=== PATIENT | female | born 1970 | race Caucasian/White ===

== ENCOUNTER 2019-01-21 06:20 | Day surgery (SDC) | payer BC ==
[2019-01-20 16:20] VITALS: BMI 26.5
[2019-01-21] VITALS (9 sets, daily range): BP systolic 97–140; BP diastolic 54–88; PULSE 57–80; RESP 17–18; Ht 162.6 cm; Wt 71.4 kg
[~2019-01-21] VITALS: Ht 162.6 cm; Wt 71.4 kg
[~2019-01-21 06:20] MED LIST: CEFAZOLIN 2 GM/50 ML (PMX) 50 ML IVPB SCH; SOD CHLORIDE 0.9% 1,000 ML IV ONE
[2019-01-21] MEDS ORDERED: BUPIVACAINE 0.5% (SDV) 30 ML INJ ONE (07:58)
[2019-01-21] MEDS ORDERED: BUPIVACAINE 0.5%/EPI (SDV) 30 ML INJ ONE (07:58)
[2019-01-21] MEDS ORDERED: BACITRACIN 0.9 GM OINT ONE (07:58)
[2019-01-21] MEDS ORDERED: BACITRACIN/POLYMYXIN 28.35 GM OINT TOP ONE (07:59)
--- NOTE | 2019-01-21 08:04 | PREAC ---
Date/Time of Note Date/Time of Note DATE: 01/21/19 TIME: 08:01 Anesthesia Eval and Record Evaluation Time Pre-Procedure Interview DATE: 01/21/19 TIME: 08:01 Age 48 Sex female NPO: 8 hrs Preoperative diagnosis Lt scalp mass Planned procedure Excision of lt scalp mass Past Medical History Past Medical History: None Surgery & Anesthesia Issues No known issue Meds Anticoagulation: No Beta Chato within 24 hr: No Reason Beta Chato not given: Pt. not on B-Chato No Active Prescriptions or Reported Meds Current Medications Cefazolin Sodium/ Dextrose 50 ml @ 100 mls/hr PRE-OP IVPB ; Start 01/21/19 at 06:00; Stop 01/21/19 at 15:00 Sodium Chloride 1,000 ml @ 75 mls/hr [id number] ONCE IV Last administered on 01/21/19at 06:42; Admin Dose 75 MLS/HR; Start 01/21/19 at 06:00; Stop 01/21/19 at 19:19 Meds reviewed: Yes Allergies Coded Allergies: No Known Allergy (Unverified , 01/21/19) Allergies Reviewed: Yes Labs/Studies Labs Reviewed: Reviewed by anesthesiologist test: Negative Studies: ECG Pre-procedure Exam Last vitals Vital Signs Date Temp Pulse Resp B/P (MAP) Pulse Ox O2 O2 Flow FiO2 Time Delivery Rate 01/21/19 98.2 78 18 140/88 97 Room Air 06:51 (105) Airway: Adequate mouth opening, Adequate thyromental dist Mallampati: Mallampati II Teeth: Normal Lung: Normal Heart: Normal ASA Physical Status ASA physical status: 3 Emergency: None Planned Anesthetic General/MAC: LMA Planned Pain Management Parenteral pain med Pre-operative Attestations Prior to commencing anesthesia and surgery, the patient was re-evaluated, there was verification of: *The patient's identity *The results of appropriate recent lab work and preoperative vital signs *The above evaluation not changing prior to induction *Anesthetic plan, risk benefits, alternative and complications discussed with patient/family; questions answered; patient/family understands, accepts and wish es to proceed. DAISHA TREADWELL MD Jan 21, 2019 08:04
[2019-01-21] MEDS ORDERED: LIDOCAINE 1% (MPF) 30 ML INJ ONE (08:28)
[2019-01-21] MEDS ORDERED: FENTAnyl 50 MCG/ML VIAL ONE (08:29)
[2019-01-21] MEDS ORDERED: MIDAZOLAM 1 MG/ML 2 ML INJ ONE (08:30)
[2019-01-21] MEDS ORDERED: ONDANSETRON 4 MG INJ ONE (08:31)
[2019-01-21] MEDS ORDERED: PROPOFOL 40 ML ONE (09:06)
[2019-01-21] MEDS ORDERED: CEFAZOLIN 1 GM INJ ONE (09:06)
[2019-01-21] MEDS ORDERED: LIDOCAINE 2% (SDV) 5 ML INJ ONE (09:06)
--- NOTE | 2019-01-21 09:12 | OPR ---
Date/Time of Note Date/Time of Note DATE: 01/21/19 TIME: 09:07 Operative Report Procedure Date: Jan 21, 2019 Preoperative Diagnosis Sebaceous cyst of scalp Postoperative Diagnosis Lipoma of the scalp, 5 cm, level of bone/skull Operation/Procedure Performed Excision of benign lesion of scalp, 5 cm Surgeon Brenton Garvin MD FACS Clinical Allergist none Anesthesia Type: MAC Estimated Blood Loss: minimal Transfusion none Specimen Lipoma of the scalp Grafts/Implants none Complications none Pt Condition Post Procedure: stable Disposition: PACU Indications This patient had a lump about 4 to 5 cm wide along the left parietal scalp region causing pain and discomfort. Symptomatic relief she will undergo excision. Procedure Description About 20 mL of local anesthesia using lidocaine and Marcaine were instilled into the dermis and galea of the scalp for local analgesia. 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 The lipomatous tumor was enucleated off of the scalp with the aid of a hemostat clamp and brought out of the head at the area adjacent to the skull where it was being adhered with connective tissue to the bone. Electrocautery was used to divide the attachments of the tumor to the skull. The lipoma was sent off with its capsule intact and was noted to be bilobar. The wound bed was then examined and hemostasis was conducted as needed with the aid of the electrocautery device. The wound bed was irrigated with saline and thereafter the scalp was closed with interrupted 3-0 chromic sutures and confirmed to be hemostatic. Incision was covered with Betadine ointment. All instrument sponge needle counts were correct at the end of the procedure. There were no comp occasions. Patient was dispositioned to recovery suite in stable condition. BRENTON GARVIN Jan 21, 2019 09:12
--- NOTE | 2019-01-21 09:15 | PAC ---
Date/Time of Note Date/Time of Note DATE: 01/21/19 TIME: 09:14 Post-Anesthesia Notes Post-Anesthesia Note Last documented vital signs Vital Signs Date Temp Pulse Resp B/P (MAP) Pulse Ox O2 O2 Flow FiO2 Time Delivery Rate 01/21/19 98.2 78 18 140/88 97 Room Air 06:51 (105) Activity: WNL Respiratory function: WNL Cardiovascular function: WNL Mental status: Baseline Pain reasonably controlled: Yes Hydration appropriate: Yes Nausea/Vomiting absent: Yes Comments BP:100/50, P:80, Spo2:100%, T:98,8 DAISHA TREADWELL MD Jan 21, 2019 09:15
[2019-01-21] MEDS ORDERED: DIPHENHYDRAMINE 50 MG INJ IV PRN (09:30)
[2019-01-21] MEDS ORDERED: FENTAnyl 50 MCG/ML VIAL IV PRN (09:30)
[2019-01-21] MEDS ORDERED: HYDROmorphONE 1 MG/5 ML IV SYRINGE IV PRN ×2 (09:30)
[2019-01-21] MEDS ORDERED: ONDANSETRON 4 MG INJ IV PRN (09:30)
[2019-01-21] MEDS ORDERED: MEPERIDINE 25 MG INJ IV PRN (09:30)
[2019-01-21] MEDS ORDERED: METOCLOPRAMIDE 10 MG INJ IV PRN (09:30)
== END 2019-01-21 10:29 | disposition home or self-care (01) ==
LOC: SDS 06:20 → EDBD 09:30 → SDS 10:29
PROVIDERS: ATTEND Surgery Surgical Critical Care
DX: L72.3 Sebaceous cyst (principal)
CPT/HCPCS: 11426; J0690; J2250; J2405; J3010; Z7610